=== PATIENT | female | born 1945 | race Caucasian/White ===

== ENCOUNTER 2017-05-21 23:54 | Observation (INO) | payer OTHER ==
[~2017-05-21] VITALS: Ht 165.1 cm; Wt 78.7 kg
[2017-05-22 00:07] LABS: CREATININE 1.2 mg/dL (0.6-1.3); POTASSIUM 3.7 mEq/L (3.7-5.4)
[2017-05-22 00:24] LABS: EOSINOPHIL (%) 3.3 % (0-5); EOSINOPHIL COUNT 0.2 K/uL (0-0.3); HEMATOCRIT 35.6 % (36.0-46.0); IMMATURE GRANULOCYTE (%) 0.3 % (0.0-0.7); INSTRUMENT ABS NEUTROPHIL CT 2.9 K/uL; LYMPHOCYTE COUNT 2.4 K/uL (1.0-2.8); MCH 31.6 PG (29.0-34.0); MCHC 33.4 G/DL (30.0-36.0); MCV 94.7 FL (83-99); MEAN PLAT.VOLUME 9.1 uM^3 (9.5-12.4); MONOCYTE (%) 8.8 % (3-12); MONOCYTE COUNT 0.5 K/uL (0-0.8); NEUTROPHIL (%) 47.9 % (45-76); NEUTROPHIL COUNT 2.9 K/uL (1.8-6.4); PLATELET COUNT 211 K/uL (156-360); RBC DIS.WIDTH-CV 12.9 % (11.8-14.6); RBC DIS.WIDTH-SD 44.6 % (39-53); RED BLOOD COUNT 3.76 M/uL (3.80-5.20); WHITE BLOOD COUNT 6.1 K/uL (4.1-10.2)
[2017-05-22 00:37] LABS: AMYLASE 20 IU/L (1-118); CHLORIDE 103 mEq/L (99-109); POTASSIUM 3.7 mEq/L (3.7-5.4); SODIUM 142 mEq/L (136-147)
[2017-05-22 00:39] LABS: GLUCOSE 102 mg/dL (70-99)
[2017-05-22 00:40] LABS: ANION GAP 11 MEQ/L (2-14)
[2017-05-22 00:42] LABS: SERUM ETHYL ALCOHOL < 10 mg/dL
[2017-05-22 00:43] LABS: GFR ESTIMATE (CALCULATED) 52 mL/min/
[2017-05-22 00:44] LABS: UREA NITROGEN (BUN) 13 mg/dL (9-23)
[2017-05-22 00:46] LABS: LIPASE 14 U/L (1.0-51.0)
[2017-05-22 00:52] LABS: TROP-I INTERPRETATION NEGATIVE; TROPONIN-I < 0.01 ng/mL (0.0-0.30)
[2017-05-22] MEDS ORDERED: HYDROCODON-ACE1 EAC7 PO (00:52)
[2017-05-22] MEDS ORDERED: WARFARIN SODIUM5 MG PO (00:52)
[2017-05-22] MEDS ORDERED: CALCIUM 500 MG1 EACH PO (00:53)
[2017-05-22] MEDS ORDERED: LEVOTHYROXINE150 MCG PO (00:53)
[2017-05-22] MEDS ORDERED: DIGOXIN125 MCG PO (00:53)
[2017-05-22] MEDS ORDERED: VISINE15 ML BOTH EYES (00:53)
[2017-05-22 02:04] LABS: INTER. NORMALIZED RATIO 1.1; PROTHROMBIN TIME 12.3 SEC (10.2-12.9)
[2017-05-22 02:05] LABS: HDL CHOLESTEROL 45 MG/DL (Desirable>=50); LDL CHOLESTEROL 88 mg/dL (Desirable<100); NON-HDL CHOLESTEROL 131 mg/dL (Desirable<160); SAMPLE HEMOLYSIS CHECK 0; SAMPLE ICTERIC CHECK 0; SAMPLE LIPEMIA CHECK 0; TOTAL CHOLESTEROL 176 mg/dL (Desirable<200); TRIGLYCERIDES 215 MG/DL (Normal: <150)
[2017-05-22 02:07] LABS: PTT 32.8 SEC (25-37)
[2017-05-22 03:50] VITALS: BP 164/91
[2017-05-22 07:11] LABS: Estimated Average Glucose 117 mg/dL (70-123); HEMOGLOBIN A1c (GLYCOHEMOGLOB) 5.7 % HGB (Below 5.7)
[2017-05-22 07:51] VITALS: BP 133/70; BP 94/51
[2017-05-22 11:37] VITALS: BP 158/77
[2017-05-22 15:16] VITALS: BP 138/68
[2017-05-22 20:07] VITALS: BP 145/69
[2017-05-23 00:23] VITALS: BP 115/62
[2017-05-23 03:53] VITALS: BP 121/62
[2017-05-23 06:56] LABS: INTER. NORMALIZED RATIO 1.6; PROTHROMBIN TIME 17.7 SEC (10.2-12.9)
[2017-05-23 08:25] VITALS: BP 135/67
[2017-05-23] MEDS ORDERED: ATORVASTATIN CA40 MG PO (10:55)
[2017-05-23] MEDS ORDERED: ELIQUIS5 MG PO (10:55)
[2017-05-23 11:15] VITALS: BP 153/78
== END 2017-05-23 13:45 | disposition home or self-care (01) ==
LOC: EME → EDBD 23:54 → 5SOUTH 05-22 01:02 → EDOF 05-22 01:02 → ENRESERV 05-22 01:03 → 5SOUTH 05-22 01:56
PROVIDERS: Emergency Medicine; Hospitalist; Physician Assistant Medical
DX: G45.9 Transient cerebral ischemic attack, unspecified (principal); I48.2 Chronic atrial fibrillation; Z79.01 Long term (current) use of anticoagulants; I10 Essential (primary) hypertension; R79.1 Abnormal coagulation profile; Z66 Do not resuscitate; I09.9 Rheumatic heart disease, unspecified; E03.9 Hypothyroidism, unspecified
CPT/HCPCS: 70496; 70498; 70551; 80047; 80048; 80061; 81003; 82150; 83036; 83690; 84484; 85025; 85610; 85730; 86900; 86901; 93005; 93306; 99281; 99285; G0378; G0480; J1650